=== PATIENT | male | born 2005 | race Two or more races ===

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

== ENCOUNTER 2025-01-11 21:34 | Emergency (ER) | payer OTHER ==
[~2025-01-11] VITALS: Ht 180.3 cm; Wt 69.0 kg
[~2025-01-11 21:34] MED LIST: METH4PAK PO
[2025-01-11 22:19] VITALS: BP 125/69; PULSE 104; RESP 18; TEMP 97.7; O2SAT 95
--- NOTE | 2025-01-11 22:50 | DVH ---
CLINICAL INDICATION: LEFT ANKLE PAIN TECHNIQUE: 3 radiographic views of the left ankle were obtained. Comparison: None FINDINGS/IMPRESSION: There is no evidence of acute fracture or dislocation. Soft tissue swelling over the lateral malleolu s. The visualized joint space is well maintained. The alignment is anatomical. There is no radiopaque foreign body.
--- NOTE | 2025-01-11 23:07 | ED.PDOC ---
Musculoskeletal HPI Comments 19 year old male presents to ER with complaints of left ankle pain x 1 day. Patient states he rolled his left ankle inwards while playing basketball at 9:00 p.m. prior to arrival to ER and has since been experiencing pain/swelling to left lateral ankle. States his left ankle "popped out of place" at time of initial injury but states he was "able to pop it back in place himself". He reports 8/10 pain to left lateral ankle without radiation. Denies use of medications for current symptoms. Patient presents to ER favoring right leg on ambulation with mild swelling/TTP noted to left lateral malleolus. Denies left foot pain, numbness/tingling or any further symptoms/complaints Chief Complaint: Lower Extremity Time Seen by MD: 21:43 Primary Care Provider: UNKNOWN Reviewed Notes: Nurses Notes, Medications, Allergies Allergies: Coded Allergies: NO KNOWN ALLERGIES (Unverified , 12/07/24) Home Meds Active Scripts Ibuprofen (Ibuprofen) 800 Mg Tab, 1 TAB PO TID PRN, #30 TAB 0 Refills Prov:JORGITO RAMIREZ 01/11/25 Methylprednisolone (Medrol Dosepak) 4 Mg Alonso, 4 MG PO UD, #21 TAB UAD Prov:BRYN CHASE 12/08/24 Information Source: Patient Mode of Arrival: Ambulatory Past Medical History PAST MEDICAL HISTORY: Denies Surgical History: Denies all surgeries Family History Family History: Unknown Social History Smoker: Non-Smoker Alcohol: Denies ETOH Use Drugs: Marijuana Lives In: Home Constitutional: denies: chills, diaphoresis, fatigue, fever, malaise, sweats, weakness, others EENTM: denies: blurred vision, double vision, ear bleeding, ear discharge, ear drainage, ear pain, ear ringing, eye pain, eye redness, hearing loss, mouth pain, mouth swelling, nasal discharge, nose bleeding, nose congestion, nose pain, photophobia, tearing, throat pain, throat swelling, voice changes, others Respiratory: denies: cough, hemoptysis, orthopnea, SOB at rest, shortness of breath, SOB with excertion, stridor, wheezing, others Cardiovascular: denies: chest pain, dizzy spells, diaphoresis, Dyspnea on exertion, edema, irregular heart beat, left arm pain, lightheadedness, palpitations, PND, syncope, others Gastrointestinal: denies: abdomen distended, abdominal pain, blood streaked bowels, constipated, diarrhea, dysphagia, difficulty swallowing, hematemesis, melena, nausea, poor appetite, poor fluid intake, rectal bleeding, rectal pain, vomiting, others Genitourinary: denies: burning, dysuria, flank pain, frequency, hematuria, incontinence, penile discharge, penile sore, pain, testicle pain, testicle swelling, urgency, others Neurological: denies: dizziness, fainting, headache, left sided numbness, left sided weakness, numbness, paresthesia, pre-existing deficit, right sided numbness, right sided weakness, seizure, speech problems, tingling, tremors, weakness, others Musculoskeletal: reports: others ( STATED IN HPI) Integumetry: reports: others ( STATED IN HPI) Allergic/Immunocompromised: denies: Difficulty Healing, Frequent Infections, Hives, Itching, others Hematologic/Lymphatic: denies: anemia, blood clots, easy bleeding, easy bruising, swollen glands, others Endocrine: denies: excessive hunger, excessive sweating, excessive thirst, excessive urination, flushing, intolerance to cold, intolerance to heat, unexplained weight gain, unexplained weight loss, others Psychiatric: denies: anxiety, bipolar disorder, depression, hopeless, panic disorder, schizophrenia, sleepless, suicidal, others Physical Exam General Appearance: Mild Distress (DUE TO PAIN LOCALIZED TO LEFT LATERAL MALLEOLUS) HEENT: PERRL/EOMI Neck: Full Range of Motion, Non-Tender, Normal Respiratory: Chest Non-Tender, Lungs Clear, No Accessory Muscle Use, No Respiratory Distress, Normal Breath Sounds Cardiovascular: No Murmur, No Gallop, Regular Rate/Rhythm Breast Exam: Deferred Gastrointestinal: NOT DONE Genitalia: Deferred Pelvic: Deferred Rectal: Deferred Extremities: Normal capillary refill, Normal range of motion Musculoskeletal : Extremity Location: Ankle (TTP/MILD SWELLING NOTED TO LEFT LATERAL MALLEOLUS. NO OTHER TTP TO LEFT ANKLE/LEFT FOOT NOTED. NO FURTHER SKIN CHANGES NOTED. PATIENT FAVORS RIGHT LEG ON AMBULATION DUE TO PAIN LOCALIZED TO LEFT LAT ERAL MALLEOLUS. 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 Was a procedure done?: No Sedation Sedation?: No Differential Diagnosis EXT Differential Diagnosis: Fracture, Dislocation, Neurovascular injury X-Ray, Labs, Meds, VS Vital Signs Date Time Temp Pulse Resp B/P (MAP) Pulse Ox O2 Delivery O2 Flow Rate FiO2 01/11/25 22:19 95 Room Air* 0 21 01/11/25 22:19 97.7 104 18 125/69 (87) 95 97.7 01/11/25 21:45 97.7 104 18 125/69 (87) 95 97.7 PATIENT: MARK RESENDIZT: [id number] UNIT: [id number] : 2005 LOC: ER ROOM / BED: / AGE / SEX: 19 / M ADM STATUS: REG ER SERVICE 10 ORDERING PHYSICIAN: JORGITO RAMIREZ PROCEDURE(s): LANKL - L ANKLE 3 VIEW REASON: LEFT ANKLE PAIN ORDER NUMBER(s): [id number], ACCESSION NUMBER(s): [id number] CLINICAL INDICATION: LEFT ANKLE PAIN TECHNIQUE: 3 radiographic views of the left ankle were obtained. Comparison: None FINDINGS/IMPRESSION: There is no evidence of acute fracture or dislocation. Soft tissue swelling over the lateral malleolus. The visualized joint space is well maintained. The alignment is anatomical. There is no radiopaque foreign body. ATED BY: RUBEN GASPAR Jr., DO DICTATED DATE/TIME: 01/11/252247 SIGNED BY: RUBEN GASPRA Jr., SIGNED DATE/TIME: 01/11/252247 CC: LEFT ANKLE X-RAY REVIEWED NAFISA WRAP APPLIED PATIENT NEUROVASCULARLY INTACT CRUTCHES ORDERED, PATIENT EDUCATED ON PROPER USE. WAS ADVISED ON USE AT ALL TIMES ADVISED ON REST/NO STRENUOUS ACTIVITY, ELEVATION AND ALTERNATE ICE ON/OFF NEEDED FOR PAIN/SWELLING ADVISED TO FOLLOW UP WITH PCP AND ORTHOPEDICS IN 1-2 DAYS PATIENT VERBALIZED UNDERSTANDING AND AGREEABLE WITH CURRENT PLAN OF CARE ADVISED TO RETURN TO ER IMMEDIATELY IF SYMPTOMS WORSEN Images Reviewed?: Images reviewed and evaluated by me Time of 1ST Reevaluation: 22:54 Reevaluation 1ST: N/A Patient Education/Counseling: Diagnosis, Treatment, Prognosis, Need For Follow Up Family Education/Counseling: No Family Present Departure 1 Departure Time of Disposition: 23:10 Impression: Primary Impression: Left ankle sprain Qualified Codes: S93.402A - Sprain of unspecified ligament of left ankle, initial encounter Disposition: HOME / SELF CARE / HOMELESS Condition: Stable e-Prescriptions Ibuprofen (Ibuprofen) 800 Mg Tab 1 TAB PO TID PRN, #30 TAB 0 Refills Prov: JORGITO RAMIREZ 01/11/25 Discharged With: Friend Critical Care Note Critical Care Time?: No Stability Stability form required: No Heart Score Heart Score: Heart Score Response (Comments) Value History N/A 0 EKG N/A 0 Age N/A 0 Risk Factors N/A 0 Troponin N/A 0 Total 0 JORGITO RAMIREZ January 11, 2025 23:07
[2025-01-11] MEDS ORDERED: IBUP-1456 PO (23:12)
== END 2025-01-11 23:20 | disposition home or self-care (01) ==
LOC: ER 21:34
DX: S93.402A Sprain of unspecified ligament of left ankle, initial encounter (principal); X50.1XXA Overexertion from prolonged static or awkward postures, initial encounter; Y93.67 Activity, basketball; Y92.89 Other specified places as the place of occurrence of the external cause; Y99.8 Other external cause status
CPT/HCPCS: 73610